=== PATIENT | male | born 1930 | race Caucasian/White ===

== ENCOUNTER 2018-09-22 19:33 | Emergency (ER) | payer MEDICARE ==
--- OUTSIDE RECORDS SUMMARY | 2018-09-22 19:49 | XMS REPORT | Continuity of Care Document ---
:1930 External Reference #:[id number] Author Name Vick Dailey M.D. Address [address] [place] [address] Care Team Providers Name Role Phone Vick Dailey M.D. Care Team Information [employer] Unavailable Payers Type Date Identification Numbers Payment Provider Subscriber Policy Number: [id number] Medicare - [employer] Name: Medicare [address] PayID: [id number] [facility] [place] [address] Advance Directives Description No Information Available Problems Date Description Provider Status Onset: 06/29/2014 Colitis Vick Dailey M.D. Active Onset: 06/29/2014 Acute renal failure syndrome Vick Dailey M.D. Active Onset: 06/29/2014 Atrial fibrillation Vick Dailey M.D. Active Onset: 06/29/2014 Clostridium difficile colitis Vick Dailey M.D. 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 Active Onset: 01/06/2015 Hypothyroidism Vick Dailey M.D. Active Onset: 01/06/2015 Congestive heart failure Vick Dailey M.D. Active Onset: 01/06/2015 Atrial fibrillation Vick Dailey M.D. 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 Active Onset: 03/06/2016 Chronic atrial fibrillation Vick Dailey M.D. Active Onset: 03/06/2016 Unspecified systolic (congestive) Vick Dailey M.D. Active heart failure Onset: 03/22/2016 Gastroesophageal reflux disease Vick Dailey M.D. Active Family History Date Family Member(s) Problem(s) Comments Father Heart Disease Father Heart Attack Mother Sciatica First Brother Leukemia Blood Cancer Second Brother Polio First Sister Cervical Cancer Social History Type Date Description Comments Sex Unknown Marital Status Legal Status: Legally Lives With Alone ETOH Use Denies alcohol use Tobacco Use Start: Unknown End: Patient is a former smoker Unknown Recreational Drug Use Denies Drug Use Smoking Status Reviewed: 09/09/18 Patient is a former smoker Allergies, Adverse Reactions, Alerts Description No Known Drug Allergies Medications Medication Date Status Form Strength Qnty SIG Indications Ordering Provider Proair HFA 03/07/ Active Aerosol 108(90Base 8.500g 2 puffs Vick 2016 ) mcg/Act m every 4 [facility] hours as os, M.D. needed Levothyroxine 09/11/ Active Tablets 75mcg 90tabs 1 by E03.9 Vick Sodium 2016 mouth [facility] every day os, M.DClint Metoprolol 07/26/ Active Tablets ER 50mg 30tabs 1 by I48.2 Vick Succinate ER 2014 24HR mouth [facility] every day os, M.DClint Lasix 02/21/ Active Tablets 40mg 90tabs 1 by I50.20 Vick 2014 mouth [facility] every day os, M.DClint Cardizem CD 01/21/ Active Caps ER 120mg 30caps 1 daily Vick 2014 24HR [facility] os, M.D. Potassium 01/21/ Active Tablets ER 20Meq 90tabs 1 by Vick Chloride ER 2015 mouth [facility] every day os, M.DClint Vitamin D3 09/22/ Active Capsules 5000Unit 90caps 1 by Vick [facility] Strength 2013 mouth [facility] every day os, M.D. Magnesium Oxide 09/22/ Active Tablets 400mg 30tabs take one Vcik 2013 daily [facility] os, M.D. Lisinopril 09/22/ Active Tablets 2.5mg 30tabs 1 by Vick 2013 mouth [facility] every day os, M.D. Calcium 500+D 06/29/ Active Tablets 500-400mg- 90tabs 1 by Vick Lugo Unit mouth [facility] three os, M.D. times a day Xarelto / Active Tablets 15mg 30tabs 1 by I48.2 Unknown 0000 mouth in the evening Cartia XT / Active Caps ER 120mg 1 by Unknown 0000 24HR mouth every day Digoxin 0000/ Active Tablets 125mcg 1 by Davidenko 0000 mouth , Timmy, every day M.D Levothyroxine 06/18/ Hx Tablets 50mcg 30tabs 1 by E03.9 Vick Sodium 2015 - mouth [facility] 09/11/ every day os, M.D. 2015 (stop the 100 mcg dose) Levothyroxine 04/18/ Hx Tablets 100mcg 30tabs 1 by E03.9 Vick Sodium 2015 - mouth [facility] 06/18/ every day os, M.D. 2016 Shingles 03/06/ Hx ok to Z00.01 Vick 2015 - give at [facility] 09/05/ the os, M.D. 2017 pharmacy Levothyroxine 07/26/ Hx Tablets 125mcg 30tabs 1 by E03.9 Vick Sodium 2014 - mouth [facility] 04/18/ every day os, M.D. 2015 Toprol XL 02/21/ Hx Tablets ER 50mg 1 daily Vick 2014 - 24HR [facility] 07/26/ os, M.D. 2014 Synthroid 02/21/ Hx Tablets 125mcg 30tabs 1 by 244.9 Vick 2014 - mouth [facility] 07/26/ every day os, M.D. 2014 Synthroid 01/06/ Hx Tablets 112mcg 30tabs 1 by 244.9 Vick 2014 - mouth [facility] 02/21/ every day os, M.D. 2014 ( stop the 100 mcg dose ) Lasix 01/06/ Hx Tablets 20mg 60tabs 1/2 by 428.0 Vcik 2014 - mouth [facility] 02/21/ twice a os, M.D. 2014 day Lasix 09/22/ Hx Tablets 40mg 60tabs 1 by 428.0 Vick 2013 - mouth [facility] 01/06/ twice a os, M.D. 2014 day Metoprolol 09/22/ Hx Tablets 50mg 1 by 428.0 Vick Tartrate 2013 - mouth [facility] 01/06/ every 6 os, M.D. 2015 hours Spironolactone 09/22/ Hx Tablets 25mg 45tabs 1/2 by Vick 2013 - mouth [facility] 01/06/ every day os, M.D. 2015 Lasix 10/17/ Hx Tablets 20mg 30tabs 1 by Vick Lugo - mouth [facility] 09/22/ daily ( os, M.DClint 2013 Sorry I Meant To Send 1 Daily Not bid) K-Tab 09/03/ Hx Tablets ER 20Meq 30tabs One Daily Vick 2013 - [facility] 01/06/ os, M.DClint 2014 Levaquin 08/24/ Hx Tablets 500mg 10tabs one daily Vick 2013 - [facility] 09/22/ os, M.DClint 2013 Synthroid 08/24/ Hx Tablets 100mcg 30tabs 1 by Seema.9 Vick 2013 - mouth [facility] 01/06/ every day os, M.DClint 2014 ( stop the 75 mcg dose ) Synthroid 08/13/ Hx Tablets 75mcg 30tabs 1 by Vick 2013 - mouth [facility] 08/24/ every day os, M.DClint 2013 (stop the 25 mcg dose ) Aspirin Ec 06/29/ Hx Tablets DR 325mg 30tabs 1 by Vick 2013 - mouth [facility] 08/27/ every day os, M.DClint 2013 Cardizem CD 06/29/ Hx Caps ER 180mg Vick 2013 - [facility] os, M.DClint 2013 Protonix 06/29/ Hx Tablets DR 40mg 90tabs 1 by Vick 2013 - mouth [facility] 07/26/ every day os, M.DClint 2014 Flomax 06/29/ Hx Capsules 0.4mg 90caps 1 by Vick 2013 - mouth [facility] 01/06/ every day os, M.DClint 2015 Synthroid 06/29/ Hx Tablets 25mcg 30tabs 1 by Vick 2013 - mouth [facility] 08/13/ every day os, M.DClint 2014 Tylenol 06/29/ Hx Tablets 325mg 120tab 2 tabs Vick 2013 - [facility], M.DClint 2015 needed Flagyl 06/29/ Hx Tablets 500mg 4tabs 1 t po q Vick 2013 - 8h stop [facility] 06/29/ /. os, M.DClint 2014 Zofran 06/29/ Hx Tablets 4mg 12tabs 1 every Vick 2013 - 12 hours [facility] 06/29/ as needed os, M.DClint 2014 Metoprolol 00/ Hx Tablets 25mg 60tabs 1 by Vick Tartrate 0000 - mouth [facility] 09/22/ twice a os, M.D. 2013 day Simvastatin / Hx Tablets 20mg 30tabs 1 by Unknown 0000 - mouth 08/27/ day 2013 at hs Aspir-81 / Hx Tablets DR 81mg 1 by Unknown 0000 - mouth 01/21/ every day 2014 Immunizations CPT Code Status Date Vaccine Lot # [id number] Given 09/11/2016 Prevnar 13 Prevnar 13 [id number] Given 09/11/2016 Flu High Dose Vaccine HPV [id number] 83744 Given 03/06/2016 Tdap Vaccine over 7 yrs old Tdap [id number] Given 03/06/2016 Prevnar 13 Prevnar 13p [id number] 09669 Given 07/26/2015 Flu High Dose Vaccine Hi/dose/flu [id number] Vital Signs Date Vital Result Comment 09/09/2018 9:16am Weight 152.00 lb BP Systolic 122 mmHg BP Diastolic 72 mmHg 03/10/2018 10:16am Weight 157.00 lb BP Systolic 98 mmHg BP Diastolic 64 mmHg Height 6.4 inches Heart Rate 63 /min O2 % BldC Oximetry 96 % room air Respiratory Rate 18 /min BMI (Body Mass Index) 2694.6 kg/m2 01/01/2018 10:51am Weight 159.00 lb BP Systolic 124 mmHg BP Diastolic 82 mmHg Body Temperature 97.6 F 03/07/2017 10:32am Weight 165.00 lb BP Systolic 120 mmHg BP Diastolic 80 mmHg Height 65.25 inches 5'5.25" Heart Rate 72 /min Body Temperature 96.6 F Respiratory Rate 16 /min BMI (Body Mass Index) 27.2 kg/m2 12/12/2016 8:38am Weight 168.50 lb BP Systolic 96 mmHg BP Diastolic 68 mmHg 09/11/2016 10:11am Weight 168.50 lb BP Systolic 122 mmHg BP Diastolic 60 mmHg 06/18/2016 10:29am Weight 163.00 lb BP Systolic 118 mmHg BP Diastolic 84 mmHg 03/06/2016 10:17am Weight 163.00 lb BP Systolic 118 mmHg BP Diastolic 80 mmHg Height 67.50 inches 5'7.50" Heart Rate 76 /min Body Temperature 97.2 F O2 % BldC Oximetry 99 % 2L (R) 3L(E) Respiratory Rate 16 /min BMI (Body Mass Index) 25.1 kg/m2 12/05/2015 11:36am Weight 162.00 lb BP Systolic 120 mmHg BP Diastolic 68 mmHg Heart Rate 68 /min O2 % BldC Oximetry 98 % 02 3L 11/04/2015 10:59am O2 % BldC Oximetry 88 % 07/26/2015 9:20am Weight 160.00 lb BP Systolic 110 mmHg BP Diastolic 78 mmHg Heart Rate 64 /min O2 % BldC Oximetry 95 % Ra 04/25/2015 8:25am Weight 161.00 lb BP Systolic 118 mmHg BP Diastolic 62 mmHg 01/21/2015 8:37am Weight 154.50 lb BP Systolic 112 mmHg BP Diastolic 68 mmHg 01/06/2015 10:02am Weight 144.00 lb BP Systolic 110 mmHg BP Diastolic 60 mmHg 09/22/2014 8:40am Weight 135.50 lb BP Systolic 100 mmHg BP Diastolic 70 mmHg O2 % BldC Oximetry 97 % Room Air 08/24/2014 9:48am Height 68 inches 5'8" 08/24/2014 8:49am Weight 188.00 lb BP Systolic 126 mmHg BP Diastolic 80 mmHg O2 % BldC Oximetry 93 % Ra 06/29/2014 9:43am Weight 151.00 lb BP Systolic 110 mmHg BP Diastolic 74 mmHg Body Temperature 76.0 F Results Test Date Facility Test Result H/L Range Note Urine Culture 01/01/2018 [facility] Urine Culture URETHRAL CHRISTIAN 6 [phone] Quantity > 100,000 CFU/mL 2 Culture If 01/01/2018 [facility] Culture If CULTURE TO 3 Indicated Comment [phone] Indicated Comment FOLLO <SEE NOTE> Source: URINE, CLEAN CAT <SEE NOTE> 4 Urinalysis With 01/01/2018 [facility] Urine Color YELLOW Yellow Microscopic [phone] Urine Clarity CLEAR Clear Urine Glucose - Dipstick NEGATIVE mg/dL Negative Urine Bilirubin - Dipstick NEGATIVE Negative Urine Ketone NEGATIVE mg/dL Negative Urine Specific [place] 1.010 1.010-1.030 Urine Blood TRACE Negative Urine PH 7.0 6.5-7.5 Urine Protein - Dipstick NEGATIVE mg/dL Negative Urine Urobilinogen - Dipstick 0.2 E.U./dL 0.2-1.0 Urine Nitrite - Dipstick POSITIVE Negative Urine Leuk Esterase MODERATE Negative Urine RBC 2-5 rbc/hpf 0-2 Urine WBC 10-20 wbc/hpf High 0-7 Urine Epithelial Cells VERY FEW /lpf None Seen Urine Bacteria MODERATE None Seen Urine Hyaline Cast 0-2 #/lpf None Seen Source: URINE, CLEAN CAT <SEE NOTE> 5 Protime 01/01/2018 [facility] Protime 18.7 seconds High 12.0-14.4 [phone] Inr 1.6 High 0.9-1.1 6 Anticoagulant Therapy? Unknown TSH Reflex FT4 01/01/2018 [facility] Thyroid Stim 2.77 uIU/mL 0.30 -4.20 And/Or FT3 [phone] Hormone Reflex add FT4? Y LDL Cholesterol Profile 01/01/2018 [facility] Cholesterol 166 mg/dL <200 7 [phone] Triglycerides 115 mg/dL <150 8 HDL Cholesterol 44 mg/dL >40 9 LDL-Cholesterol 99 mg/dL < 100 10 Reflex add FT4? Y Glycohemoglobin A1c 01/01/2018 [facility] Glycohemoglobin 6.3 % 4.2-6.3 11 [phone] (A1c) eAG 134 mg/dL Microalbumin,Random 01/01/2018 [facility] Microalbumin,Urine 48.5 < 20.0 Urine [phone] mg/L Comprehensive 01/01/2018 [facility] Glucose 123 High 74-106 Metabolic Panel [phone] mg/dL BUN 30 mg/dL High 7-18 Creatinine 1.7 mg/dL High 0.6-1.3 Glom Filtration Rate, Estimate 41 mL/min >60 If 50 mL/min >60 12 BUN/Creat 17.6 ratio Sodium 141 mmol/L 136-145 Potassium 3.9 mmol/L 3.5-5.1 Chloride 103 mmol/L 98-107 Carbon Dioxide 32 mmol/L 21-32 Anion Gap 6 mEq/L Low 8-16 Calcium 9.4 mg/dL 8.5-10.1 Total Protein 7.3 g/dL 6.4-8.2 Albumin 3.9 g/dL 3.4-5.0 Globulin 3.4 g/dL 1.9-4.3 Alb/Glob 1.1 ratio Bilirubin,Total 0.9 mg/dL 0.2-1.0 Sgot/Ast 18 U/L 15-37 SGPT/Alt 27 U/L 12-78 Alkaline Phosphatase 67 U/L 45-117 Reflex add FT4? Y CBC 01/01/2018 [facility] White Blood Count 8.8 K/uL 3.4-10.5 [phone] Red Blood Count 5.09 M/uL 4.20-5.80 Hemoglobin 15.5 gm/dL 12.8-17.0 Hematocrit 46.4 % 38.0-48.0 Mean Cell Volume 91.2 fl 80.0-96.0 Mean Corpuscular HGB 30.5 pg 27.0-33.0 Mean Corpuscular HGB Conc 33.4 g/dL 31.7-36.0 Platelet Count 294 K/uL 155-360 Red Cell Distri Width %CV 14.8 % 11.6-15.8 Mean Platelet Volume 10.8 fL High 6.6-10.6 Anticoagulant Therapy? Unknown Comprehensive Metabolic 02/28/2017 [facility] Glucose 126 mg/dL High 74-106 13 Panel [phone] BUN 31 mg/dL High 7-18 Creatinine 1.6 mg/dL High 0.6-1.3 Glom Filtration Rate, Estimate 44 mL/min >60 If 53 mL/min >60 14 BUN/Creat 19.3 ratio Sodium 143 mmol/L 136-145 Potassium 3.8 mmol/L 3.5-5.1 Chloride 104 mmol/L 98-107 Carbon Dioxide 34 mmol/L High 21-32 Anion Gap 5 mEq/L Low 8-16 Calcium 9.0 mg/dL 8.5-10.1 Total Protein 7.0 g/dL 6.4-8.2 Albumin 3.8 g/dL 3.4-5.0 Globulin 3.2 g/dL 1.9-4.3 Alb/Glob 1.2 ratio Bilirubin,Total 0.8 mg/dL 0.2-1.0 Sgot/Ast 13 U/L Low 15-37 15 SGPT/Alt 33 U/L 12-78 Alkaline Phosphatase 74 U/L 45-117 Reflex add FT3? Y Reflex add FT4? Y Microalbumin,Random 02/28/2017 [facility] Microalbumin,Urine 184.0 < Urine [phone] mg/L 20.0 TSH Reflex FT4 And/Or 02/28/2017 [facility] Thyroid Stim Hormone 0.15 Low 0.30- FT3 [phone] uIU/mL 4.20 Reflex add FT3? Y Reflex add FT4? Y CBS W/Automated Diff 02/28/2017 [facility] White Blood 9.6 K/uL 3.4-10.5 [phone] Count Red Blood Count 4.97 M/uL 4.20-5.80 Hemoglobin 15.1 gm/dL 12.8-17.0 Hematocrit 45.5 % 38.0-48.0 Mean Cell Volume 91.5 fl 80.0-96.0 Mean Corpuscular HGB 30.4 pg 27.0-33.0 Mean Corpuscular HGB Conc 33.2 g/dL 31.7-36.0 Platelet Count 252 K/uL 150-400 Red Cell Distri Width SD 47.4 fl 36-51 Red Cell Distri Width %CV 14.4 % 11.6-15.8 Mean Platelet Volume 11.3 fL High 6.6-10.6 Neut% 61.1 % 33.0-73.0 Lymph % 22.1 % 20.0-42.0 Luna % 11.9 % High 0.0-10.0 Eo% 4.4 % 0.0-6.6 Bas% 0.5 % 0.0-1.1 Neut# 5.87 K/uL 1.8-7.0 Lymph # 2.12 K/uL 1.0-4.0 Luna # 1.14 K/uL High 0.0-0.8 Eos # 0.42 K/uL 0.0-0.5 Baso # 0.05 K/uL 0.0-0.1 Free T3 02/28/2017 [facility] Free T3 2.81 pg/mL 2.18-3.98 [phone] Reflex add FT3? Y Reflex add FT4? Y Free T4 02/28/2017 [facility] Free T4 1.42 ng/dL 0.76-1.46 [phone] Reflex add FT3? Y Reflex add FT4? Y Laboratory 11/29/2016 [facility] Testosterone,Serum [phone] 16, 17 test finding [phone] ng/dL Prostate 11/29/2016 [facility] PSA (Natalia Loci) 5.54 < 4.0 18 Specific [phone] ng/mL Antigen Reflex add FT3? N Reflex add FT4? Y CBC 11/29/2016 [facility] White Blood Count 7.9 K/uL 3.4-10.5 [phone] Red Blood Count 4.88 M/uL 4.20-5.80 Hemoglobin 15.1 gm/dL 12.8-17.0 Hematocrit 45.1 % 38.0-48.0 Mean Cell Volume 92.4 fl 80.0-96.0 Mean Corpuscular HGB 30.9 pg 27.0-33.0 Mean Corpuscular HGB Conc 33.5 g/dL 31.7-36.0 Platelet Count 249 K/uL 150-400 Red Cell Distri Width %CV 14.0 % 11.6-15.8 Mean Platelet Volume 11.2 fL High 6.6-10.6 Comprehensive Metabolic 11/29/2016 [facility] Glucose 112 mg/dL High 74-106 Panel [phone] BUN 32 mg/dL High 7-18 Creatinine 1.6 mg/dL High 0.6-1.3 Glom Filtration Rate, Estimate 44 mL/min >60 If 53 mL/min >60 19 BUN/Creat 20.0 ratio Sodium 142 mmol/L 136-145 Potassium 3.8 mmol/L 3.5-5.1 Chloride 102 mmol/L 98-107 Carbon Dioxide 35 mmol/L High 21-32 Anion Gap 5 mEq/L Low 8-16 Calcium 8.9 mg/dL 8.5-10.1 Total Protein 7.0 g/dL 6.4-8.2 Albumin 3.8 g/dL 3.4-5.0 Globulin 3.2 g/dL 1.9-4.3 Alb/Glob 1.2 ratio Bilirubin,Total 0.9 mg/dL 0.2-1.0 Sgot/Ast 11 U/L Low 15-37 20 SGPT/Alt 29 U/L 12-78 Alkaline Phosphatase 74 U/L 45-117 Reflex add FT3? N Reflex add FT4? Y TSH Reflex FT4 11/29/2016 [facility] Thyroid Stim 0.52 uIU/mL 0.30 -4.20 And/Or FT3 [phone] Hormone Reflex add FT3? N Reflex add FT4? Y TSH Reflex 09/07/2016 [facility] Thyroid Stim 6.78 uIU/mL High 0.30 -4.20 21 FT4 And/Or [phone] Hormone FT3 Reflex add FT3? Y Reflex add FT4? Y Free T3 09/07/2016 [facility] Free T3 2.65 pg/mL 2.18-3.98 [phone] Reflex add FT3? Y Reflex add FT4? Y Free T4 09/07/2016 [facility] Free T4 1.31 ng/dL 0.76-1.46 [phone] Reflex add FT3? Y Reflex add FT4? Y Laboratory test 06/13/2016 [facility] TSH Reflex 0.01 Low 0.30- 4.20 22 finding [phone] FT4 and/or uIU/mL FT3 Laboratory test 03/27/2016 [facility] TSH Reflex < 0.01 Low 0.30- 4.20 23 finding [phone] FT4 and/or uIU/mL FT3 Comprehensive 03/27/2016 [facility] Glucose 105 mg/dL 74-106 Metabolic Panel [phone] BUN 27 mg/dL High 7-18 Creatinine 1.4 mg/dL High 0.6-1.3 Glom Filtration Rate, Estimate 51 mL/min >60 If >60 mL/min >60 24 BUN/Creat 19.2 ratio Sodium 138 mmol/L 136-145 Potassium 4.3 mmol/L 3.5-5.1 Chloride 100 mmol/L 98-107 Carbon Dioxide 33 mmol/L High 21-32 Anion Gap 5 mEq/L Low 8-16 Calcium 8.9 mg/dL 8.5-10.1 Total Protein 7.3 g/dL 6.4-8.2 Albumin 3.8 g/dL 3.4-5.0 Globulin 3.5 g/dL 1.9-4.3 Alb/Glob 1.1 ratio Bilirubin,Total 0.5 mg/dL 0.2-1.0 Sgot/Ast 15 U/L 15-37 SGPT/Alt 41 U/L 12-78 Alkaline Phosphatase 91 U/L 45-117 CBC 03/27/2016 [facility] White Blood Count 8.3 K/uL 3.4-10.5 [phone] Red Blood Count 4.75 M/uL 4.20-5.80 Hemoglobin 13.8 gm/dL 12.8-17.0 Hematocrit 43.1 % 38.0-48.0 Mean Cell Volume 90.7 fl 80.0-96.0 Mean Corpuscular HGB 29.1 pg 27.0-33.0 Mean Corpuscular HGB Conc 32.0 g/dL 31.7-36.0 Platelet Count 276 K/uL 150-400 Red Cell Distri Width %CV 14.3 % 11.6-15.8 Mean Platelet Volume 11.4 fL High 6.6-10.6 LDL Cholesterol Profile 03/27/2016 [facility] Cholesterol 154 mg/dL <200 25 [phone] Triglycerides 121 mg/dL <150 26 HDL Cholesterol 35 mg/dL Low >40 27 LDL-Cholesterol 95 mg/dL < 100 28 CBC 10/27/2015 [facility] White Blood Count 12.2 K/uL High 3.4- 10.5 [phone] Red Blood Count 4.17 M/uL Low 4.20-5.80 Hemoglobin 12.7 gm/dL Low 12.8-17.0 Hematocrit 37.7 % Low 38.0-48.0 Mean Cell Volume 90.4 fl 80.0-96.0 Mean Corpuscular HGB 30.5 pg 27.0-33.0 Mean Corpuscular HGB Conc 33.7 g/dL 31.7-36.0 Platelet Count 282 K/uL 150-400 Red Cell Distri Width %CV 14.6 % 11.6-15.8 Mean Platelet Volume 11.3 fL High 6.6-10.6 Laboratory test 10/27/2015 [facility] Magnesium 2.4 mg/dL 1.8-2.4 finding [phone] Basic Metabolic Panel 10/27/2015 [facility] Glucose 196 mg/dL High 74-106 [phone] BUN 47 mg/dL High 7-18 Creatinine 1.6 mg/dL High 0.6-1.3 Glom Filtration Rate, Estimate 44 mL/min >60 If 53 mL/min >60 29 BUN/Creat 29.3 ratio Sodium 137 mmol/L 136-145 Potassium 4.4 mmol/L 3.5-5.1 Chloride 100 mmol/L 98-107 Carbon Dioxide 28 mmol/L 21-32 Anion Gap 9 mEq/L 8-16 Calcium 9.1 mg/dL 8.5-10.1 CBC 10/26/2015 [facility] White Blood Count 6.6 K/uL 3.4-10.5 [phone] Red Blood Count 4.24 M/uL 4.20-5.80 Hemoglobin 12.7 gm/dL Low 12.8-17.0 Hematocrit 37.9 % Low 38.0-48.0 Mean Cell Volume 89.4 fl 80.0-96.0 Mean Corpuscular HGB 30.0 pg 27.0-33.0 Mean Corpuscular HGB Conc 33.5 g/dL 31.7-36.0 Platelet Count 235 K/uL 150-400 Red Cell Distri Width %CV 14.5 % 11.6-15.8 Mean Platelet Volume 11.6 fL High 6.6-10.6 Laboratory test 10/26/2015 [facility] C-Reactive 129.0 mg/L High < 3.0 finding [phone] Protein,Quant Basic Metabolic 10/26/2015 [facility] Glucose 190 mg/dL High 74- 106 Panel [phone] BUN 42 mg/dL High 7-18 Creatinine 1.7 mg/dL High 0.6-1.3 Glom Filtration Rate, Estimate 41 mL/min >60 If 50 mL/min >60 30 BUN/Creat 24.7 ratio Sodium 138 mmol/L 136-145 Potassium 4.3 mmol/L 3.5-5.1 Chloride 100 mmol/L 98-107 Carbon Dioxide 29 mmol/L 21-32 Anion Gap 9 mEq/L 8-16 Calcium 9.5 mg/dL 8.5-10.1 Comprehensive Metabolic 10/25/2015 [facility] Glucose 114 mg/dL High 74-106 Panel [phone] BUN 39 mg/dL High 7-18 Creatinine 1.5 mg/dL High 0.6-1.3 Glom Filtration Rate, Estimate 48 mL/min >60 If 58 mL/min >60 31 BUN/Creat 26.0 ratio Sodium 139 mmol/L 136-145 Potassium 3.6 mmol/L 3.5-5.1 Chloride 101 mmol/L 98-107 Carbon Dioxide 32 mmol/L 21-32 Anion Gap 6 mEq/L Low 8-16 Calcium 9.0 mg/dL 8.5-10.1 Total Protein 6.0 g/dL Low 6.4-8.2 Albumin 2.8 g/dL Low 3.4-5.0 Globulin 3.2 g/dL 1.9-4.3 Alb/Glob 0.9 ratio Bilirubin,Total 0.8 mg/dL 0.2-1.0 Sgot/Ast 12 U/L Low 15-37 32 SGPT/Alt 24 U/L 12-78 Alkaline Phosphatase 56 U/L 45-117 CBC 10/25/2015 [facility] White Blood Count 7.0 K/uL 3.4-10.5 [phone] Red Blood Count 4.02 M/uL Low 4.20-5.80 Hemoglobin 12.1 gm/dL Low 12.8-17.0 Hematocrit 36.0 % Low 38.0-48.0 Mean Cell Volume 89.6 fl 80.0-96.0 Mean Corpuscular HGB 30.1 pg 27.0-33.0 Mean Corpuscular HGB Conc 33.6 g/dL 31.7-36.0 Platelet Count 208 K/uL 150-400 Red Cell Distri Width %CV 14.5 % 11.6-15.8 Mean Platelet Volume 11.8 fL High 6.6-10.6 Comprehensive Metabolic 10/24/2015 [facility] Glucose 152 mg/dL High 74-106 Panel [phone] BUN 37 mg/dL High 7-18 Creatinine 1.6 mg/dL High 0.6-1.3 Glom Filtration Rate, Estimate 44 mL/min >60 If 53 mL/min >60 33 BUN/Creat 23.1 ratio Sodium 139 mmol/L 136-145 Potassium 4.0 mmol/L 3.5-5.1 Chloride 100 mmol/L 98-107 Carbon Dioxide 28 mmol/L 21-32 Anion Gap 11 mEq/L 8-16 Calcium 9.2 mg/dL 8.5-10.1 Total Protein 7.1 g/dL 6.4-8.2 Albumin 3.5 g/dL 3.4-5.0 Globulin 3.6 g/dL 1.9-4.3 Alb/Glob 1.0 ratio Bilirubin,Total 1.3 mg/dL High 0.2-1.0 Sgot/Ast 11 U/L Low 15-37 34 SGPT/Alt 29 U/L 12-78 Alkaline Phosphatase 70 U/L 45-117 Laboratory test 10/24/2015 [facility] NT-proBNP 5052.0 pg/mL High < 450 finding [phone] Troponin-I < 0.015 ng/mL 35 CBC W/Automated 10/24/2015 [facility] White Blood 11.1 K/uL High 3.4-10.5 Diff [phone] Count Red Blood Count 4.44 M/uL 4.20-5.80 Hemoglobin 13.8 gm/dL 12.8-17.0 Hematocrit 40.5 % 38.0-48.0 Mean Cell Volume 91.2 fl 80.0-96.0 Mean Corpuscular HGB 31.1 pg 27.0-33.0 Mean Corpuscular HGB Conc 34.1 g/dL 31.7-36.0 Platelet Count 246 K/uL 150-400 Red Cell Distri Width SD 47.6 fl 36-51 Red Cell Distri Width %CV 14.7 % 11.6-15.8 Mean Platelet Volume 11.4 fL High 6.6-10.6 Neut% 79.3 % High 33.0-73.0 Lymph % 6.2 % Low 17.0-56.0 Luna % 14.1 % High 0.0-10.0 Eo% 0.3 % 0.0-5.0 Bas% 0.1 % 0.1-1.0 Neut# 8.78 K/uL High 1.8-7.0 Lymph # 0.69 K/uL Low 1.8-7.0 Luna # 1.56 K/uL High 0.0-0.8 Eos # 0.03 K/uL 0.0-0.5 Baso # 0.01 K/uL Low 0.1-0.2 Blood Culture 10/24/2015 [facility] Blood Culture Aerobic See Note 36 [phone] Blood Culture Anaerobic See Note 37 Laboratory test 10/24/2015 [facility] Lactic Acid 2.2 mmol/L High 0.4-2.0 finding [phone] Blood Culture 10/24/2015 [facility] Blood Culture See Note 38 [phone] Aerobic Blood Culture Anaerobic See Note 39 Venous Blood Gas 10/24/2015 [facility] Venous Blood Gas pH 7.44 7.25-7.55 [phone] Venous Blood Gas Pco2 46 mmHg 45-50 Venous Blood Gas Po2 172 mmHg High 40-60 Venous Blood Gas Hco3 30.5 mEq/L Venous Blood Gas Base XS 5.5 mEq/L Venous Blood Gas OS Sat. 99.4 % High 60-80 Laboratory test 10/24/2015 [facility] Legionella Culture See Note 40 finding [phone] Respiratory Culture 10/24/2015 [facility] Gram Stain See Note 41 W/Gram St [phone] Respiratory Culture See Note 42 Laboratory test 12/13/2014 [facility] Free T3 1.89 pg/mL Low 2.18- 3.98 finding [phone] Free T4 1.64 ng/dL High 0.76-1.46 CBC W/Automated Diff 12/13/2014 [facility] White Blood 7.7 K/uL 3.4-10.5 [phone] Count Red Blood Count 4.84 M/uL 4.20-5.80 Hemoglobin 14.4 gm/dL 12.8-17.0 Hematocrit 43.4 % 38.0-48.0 Mean Cell Volume 89.7 fl 80.0-96.0 Mean Corpuscular HGB 29.8 pg 27.0-33.0 Mean Corpuscular HGB Conc 33.2 g/dL 31.7-36.0 Platelet Count 286 K/uL 150-400 Red Cell Distri Width SD 50.3 fl 36-51 Red Cell Distri Width %CV 15.6 % 11.6-15.8 Mean Platelet Volume 11.0 fL High 6.6-10.6 Neut% 71.2 % 33.0-73.0 Lymph % 15.5 % Low 17.0-56.0 Luna % 10.0 % 0.0-10.0 Eo% 2.9 % 0.0-5.0 Bas% 0.4 % 0.1-1.0 Neut# 5.49 K/uL 1.8-7.0 Lymph # 1.19 K/uL Low 1.2-4.0 Luna # 0.77 K/uL High 0.0-0.6 Eos # 0.22 K/uL 0.0-0.5 Baso # 0.03 K/uL Low 0.1-0.2 Comprehensive Metabolic 12/13/2014 [facility] Glucose 174 mg/dL High 74-106 Panel [phone] BUN 60 mg/dL High 7-18 Creatinine 2.0 mg/dL High 0.6-1.3 Glom Filtration Rate, Estimate 34 mL/min >60 If 41 mL/min >60 43 BUN/Creat 30.0 ratio Sodium 140 mmol/L 136-145 Potassium 4.3 mmol/L 3.5-5.1 Chloride 102 mmol/L 98-107 Carbon Dioxide 34 mmol/L High 21-32 Anion Gap 8 mEq/L 8-16 Calcium 10.0 mg/dL 8.5-10.1 Total Protein 6.9 g/dL 6.4-8.2 Albumin 4.0 g/dL 3.4-5.0 Globulin 2.9 g/dL 1.9-4.3 Alb/Glob 1.4 ratio Bilirubin,Total 0.6 mg/dL 0.2-1.0 Sgot/Ast 17 U/L 15-37 SGPT/Alt 43 U/L 12-78 Alkaline Phosphatase 71 U/L 45-117 Laboratory test 12/13/2014 [facility] TSH Reflex 4.98 High 0.36- 3.74 44 finding [phone] FT4 and/or uIU/mL FT3 Laboratory test 10/07/2014 [facility] Vitamin 40.1 ng/mL 30.0- 100.0 45 finding [phone] D,25-Hydrox y Comprehensive 10/07/2014 [facility] Glucose 202 mg/dL High 74-106 Metabolic Panel [phone] BUN 41 mg/dL High 7-18 Creatinine 1.4 mg/dL High 0.6-1.3 Glom Filtration Rate, Estimate 52 mL/min >60 If >60 mL/min >60 46 BUN/Creat 29.2 ratio Sodium 140 mmol/L 136-145 Potassium 3.7 mmol/L 3.5-5.1 Chloride 101 mmol/L 98-107 Carbon Dioxide 36 mmol/L High 21-32 Anion Gap 7 mEq/L Low 8-16 Calcium 9.5 mg/dL 8.5-10.1 Total Protein 6.8 g/dL 6.4-8.2 Albumin 3.8 g/dL 3.4-5.0 Globulin 3.0 g/dL 1.9-4.3 Alb/Glob 1.3 ratio Bilirubin,Total 0.5 mg/dL 0.2-1.0 Sgot/Ast 17 U/L 15-37 SGPT/Alt 34 U/L 12-78 Alkaline Phosphatase 77 U/L 45-117 Laboratory test 10/07/2014 [facility] Thyroid Stim 4.51 uIU/mL High 0.36-3.74 finding [phone] Hormone Basic Metabolic 09/10/2014 [facility] Glucose 86 mg/dL 74-106 Panel [phone] BUN 40 mg/dL High 7-18 Creatinine 1.3 mg/dL 0.6-1.3 Glom Filtration Rate, Estimate 56 mL/min >60 If >60 mL/min >60 47 BUN/Creat 30.7 ratio Sodium 139 mmol/L 136-145 Potassium 4.1 mmol/L 3.5-5.1 Chloride 99 mmol/L 98-107 Carbon Dioxide 37 mmol/L High 21-32 Anion Gap 7 mEq/L Low 8-16 Calcium 8.7 mg/dL 8.5-10.1 CBC 09/09/2014 [facility] White Blood Count 6.1 K/uL 3.4-10.5 [phone] Red Blood Count 4.22 M/uL 4.20-5.80 Hemoglobin 13.1 gm/dL 12.8-17.0 Hematocrit 38.8 % 38.0-48.0 Mean Cell Volume 91.9 fl 80.0-96.0 Mean Corpuscular HGB 31.0 pg 27.0-33.0 Mean Corpuscular HGB Conc 33.8 g/dL 31.7-36.0 Platelet Count 285 K/uL 150-400 Red Cell Distri Width %CV 14.3 % 11.6-15.8 Mean Platelet Volume 11.1 fL High 6.6-10.6 Basic Metabolic Panel 09/09/2014 [facility] Glucose 89 mg/dL 74- 106 [phone] BUN 41 mg/dL High 7-18 Creatinine 1.5 mg/dL High 0.6-1.3 Glom Filtration Rate, Estimate 48 mL/min >60 If 58 mL/min >60 48 BUN/Creat 27.3 ratio Sodium 139 mmol/L 136-145 Potassium 4.0 mmol/L 3.5-5.1 Chloride 98 mmol/L 98-107 Carbon Dioxide 38 mmol/L High 21-32 Anion Gap 7 mEq/L Low 8-16 Calcium 8.9 mg/dL 8.5-10.1 Laboratory test finding 09/08/2014 [facility] Magnesium 1.7 mg/dL Low 1.8-2.4 [phone] Basic Metabolic Panel 09/08/2014 [facility] Glucose 88 mg/dL 74- 106 [phone] BUN 30 mg/dL High 7-18 Creatinine 1.3 mg/dL 0.6-1.3 Glom Filtration Rate, Estimate 56 mL/min >60 If >60 mL/min >60 49 BUN/Creat 23.0 ratio Sodium 138 mmol/L 136-145 Potassium 3.8 mmol/L 3.5-5.1 Chloride 94 mmol/L Low 98-107 Carbon Dioxide 40 mmol/L High 21-32 Anion Gap 8 mEq/L 8-16 Calcium 9.0 mg/dL 8.5-10.1 Laboratory test 09/07/2014 [facility] Troponin-I < 0.02 ng/mL 50 finding [phone] Laboratory test 09/07/2014 [facility] Magnesium 1.6 mg/dL Low 1.8- 2.4 finding [phone] Basic Metabolic 09/07/2014 [facility] Glucose 82 mg/dL 74-106 Panel [phone] BUN 23 mg/dL High 7-18 Creatinine 1.3 mg/dL 0.6-1.3 Glom Filtration Rate, Estimate 56 mL/min >60 If >60 mL/min >60 51 BUN/Creat 17.6 ratio Sodium 142 mmol/L 136-145 Potassium 3.7 mmol/L 3.5-5.1 Chloride 101 mmol/L 98-107 Carbon Dioxide 35 mmol/L High 21-32 Anion Gap 10 mEq/L 8-16 Calcium 8.4 mg/dL Low 8.5-10.1 CBC W/Automated Diff 09/06/2014 [facility] White Blood 7.1 K/uL 3.4-10.5 [phone] Count Red Blood Count 4.33 M/uL 4.20-5.80 Hemoglobin 13.3 gm/dL 12.8-17.0 Hematocrit 40.5 % 38.0-48.0 Mean Cell Volume 93.5 fl 80.0-96.0 Mean Corpuscular HGB 30.7 pg 27.0-33.0 Mean Corpuscular HGB Conc 32.8 g/dL 31.7-36.0 Platelet Count 269 K/uL 150-400 Red Cell Distri Width SD 50.8 fl 36-51 Red Cell Distri Width %CV 15.1 % 11.6-15.8 Mean Platelet Volume 11.0 fL High 6.6-10.6 Neut% 69.2 % 33.0-73.0 Lymph % 12.2 % Low 17.0-56.0 Luna % 14.0 % High 0.0-10.0 Eo% 3.9 % 0.0-5.0 Bas% 0.7 % 0.1-1.0 Neut# 4.93 K/uL 1.8-7.0 Lymph # 0.87 K/uL Low 1.2-4.0 Luna # 1.00 K/uL High 0.0-0.6 Eos # 0.28 K/uL 0.0-0.5 Baso # 0.05 K/uL Low 0.1-0.2 Laboratory test finding 09/06/2014 [facility] CK 51 U/L 39-308 [phone] NT-proBNP 9764.0 pg/mL High <450 Troponin-I < 0.02 ng/mL 52 Comprehensive Metabolic 09/06/2014 [facility] Glucose 131 mg/dL High 74-106 Panel [phone] BUN 20 mg/dL High 7-18 Creatinine 1.0 mg/dL 0.6-1.3 Glom Filtration Rate, Estimate >60 mL/min >60 If >60 mL/min >60 53 BUN/Creat 20.0 ratio Sodium 141 mmol/L 136-145 Potassium 4.3 mmol/L 3.5-5.1 Chloride 104 mmol/L 98-107 Carbon Dioxide 34 mmol/L High 21-32 Anion Gap 7 mEq/L Low 8-16 Calcium 8.9 mg/dL 8.5-10.1 Total Protein 6.7 g/dL 6.4-8.2 Albumin 3.6 g/dL 3.4-5.0 Globulin 3.1 g/dL 1.9-4.3 Alb/Glob 1.2 ratio Bilirubin,Total 0.3 mg/dL 0.2-1.0 Sgot/Ast 26 U/L 15-37 SGPT/Alt 29 U/L 12-78 Alkaline Phosphatase 110 U/L 45-117 Laboratory test 09/06/2014 [facility] Troponin-I < 0.02 54 finding [phone] ng/mL Laboratory test 08/24/2014 [facility] TSH Reflex FT4 11.00 High 0.36- 55 finding [phone] and/or FT3 uIU/mL 3.74 Comprehensive 08/24/2014 [facility] Glucose 91 mg/dL 74-10 Metabolic Panel [phone] BUN 21 mg/dL High 7-18 Creatinine 0.9 mg/dL 0.6-1.3 Glom Filtration Rate, Estimate >60 mL/min >60 If >60 mL/min >60 56 BUN/Creat 23.3 ratio Sodium 145 mmol/L 136-145 Potassium 3.4 mmol/L Low 3.5-5.1 Chloride 108 mmol/L High 98-107 Carbon Dioxide 33 mmol/L High 21-32 Anion Gap 7 mEq/L Low 8-16 Calcium 8.7 mg/dL 8.5-10.1 Total Protein 6.2 g/dL Low 6.4-8.2 Albumin 3.1 g/dL Low 3.4-5.0 Globulin 3.1 g/dL 1.9-4.3 Alb/Glob 1.0 ratio Bilirubin,Total 0.4 mg/dL 0.2-1.0 Sgot/Ast 9 U/L Low 15-37 SGPT/Alt 24 U/L 12-78 Alkaline Phosphatase 112 U/L 45-117 CBS W/Automated Diff 08/24/2014 [facility] White Blood 6.8 K/uL 3.4-10.5 [phone] Count Red Blood Count 4.38 M/uL 4.20-5.80 Hemoglobin 13.5 gm/dL 12.8-17.0 Hematocrit 40.8 % 38.0-48.0 Mean Cell Volume 93.2 fl 80.0-96.0 Mean Corpuscular HGB 30.8 pg 27.0-33.0 Mean Corpuscular HGB Conc 33.1 g/dL 31.7-36.0 Platelet Count 258 K/uL 150-400 Red Cell Distri Width SD 49.0 fl 36-51 Red Cell Distri Width %CV 14.8 % 11.6-15.8 Mean Platelet Volume 11.5 fL High 6.6-10.6 Neut% 69.8 % 33.0-73.0 Lymph % 10.4 % Low 17.0-56.0 Luna % 14.8 % High 0.0-10.0 Eo% 4.6 % 0.0-5.0 Bas% 0.4 % 0.1-1.0 Neut# 4.75 K/uL 1.8-7.0 Lymph # 0.71 K/uL Low 1.2-4.0 Luna # 1.01 K/uL High 0.0-0.6 Eos # 0.31 K/uL 0.0-0.5 Baso # 0.03 K/uL Low 0.1-0.2 Laboratory test finding 08/24/2014 [facility] Uric Acid 4.7 mg/dL 3.5-7.2 [phone] Free T3 3.10 pg/mL 2.18-3.98 Free T4 1.29 ng/dL 0.76-1.46 Comprehensive Metabolic 07/21/2014 [facility] Glucose 109 mg/dL 76 -115 Panel [phone] BUN 18 mg/dL 5-23 Creatinine 1.1 mg/dL 0.5-1.4 Glom Filtration Rate, Estimate >60 mL/min >60 If >60 mL/min >60 57 BUN/Creat 16.3 ratio Sodium 141 mmol/L 136-145 Potassium 3.7 mmol/L 3.5-5.1 Chloride 107 mmol/L 98-107 Carbon Dioxide 27 mEq/L 18-29 Anion Gap 11 mEq/L 8-16 Calcium 8.5 mg/dL 8.5-10.1 Total Protein 5.6 g/dL Low 6.3-8.0 Albumin 2.7 g/dL Low 3.5-5.0 Globulin 2.9 g/dL 1.9-4.3 Alb/Glob 0.9 ratio Bilirubin,Total 0.5 mg/dL 0.2-1.2 Sgot/Ast 17 U/L 16-40 SGPT/Alt 26 U/L Low 30-65 Alkaline Phosphatase 92 U/L 50-136 Laboratory test 07/21/2014 [facility] Thyroid Stim 20.90 High 0.49- 4.67 finding [phone] Hormone uIU/mL CBC 07/21/2014 [facility] White Blood 6.6 K/uL 3.4-10.5 [phone] Count Red Blood Count 4.30 M/uL 4.20-5.80 Hemoglobin 13.0 gm/dL 12.8-17.0 Hematocrit 39.3 % 38.0-48.0 Mean Cell Volume 91.4 fl 80.0-96.0 Mean Corpuscular HGB 30.2 pg 27.0-33.0 Mean Corpuscular HGB Conc 33.1 g/dL 31.7-36.0 Platelet Count 374 K/uL 150-400 Red Cell Distri Width %CV 15.2 % 11.6-15.8 Mean Platelet Volume 10.1 fL 6.6-10.6 Basic Metabolic Panel 07/14/2014 [facility] Glucose 133 mg/dL High 76-115 [phone] BUN 24 mg/dL High 5-23 Creatinine 1.4 mg/dL 0.5-1.4 Glom Filtration Rate, Estimate 52 mL/min >60 If >60 mL/min >60 58 BUN/Creat 17.1 ratio Sodium 139 mmol/L 136-145 Potassium 3.6 mmol/L 3.5-5.1 Chloride 97 mmol/L Low 98-107 Carbon Dioxide 38 mEq/L High 18-29 Anion Gap 8 mEq/L 8-16 Calcium 8.1 mg/dL Low 8.5-10.1 Laboratory test finding 07/14/2014 [facility] Magnesium 1.8 mg/dL 1.7-2.3 [phone] C-Reactive Protein,Quant 76.8 mg/L High 0.0-4.9 Urinalysis With 07/14/2014 [facility] Urine Color YELLOW Yellow Microscopic [phone] Urine Clarity CLEAR Clear Urine Glucose - Dipstick NEGATIVE mg/dL Negative Urine Bilirubin - Dipstick NEGATIVE Negative Urine Ketone NEGATIVE mg/dL Negative Urine Specific [place] 1.010 1.010-1.030 Urine Blood LARGE High Negative Urine PH 7.0 6.5-7.5 Urine Protein - Dipstick NEGATIVE mg/dL Negative Urine Urobilinogen - Dipstick 0.2 E.U./dL 0.2-1.0 Urine Nitrite - Dipstick NEGATIVE Negative Urine Leuk Esterase NEGATIVE Negative Urine RBC 5-10 rbc/hpf 0-7 Urine WBC 0-2 wbc/hpf 0-7 Urine Epithelial Cells NONE SEEN NONESEEN/lpf Urine Bacteria VERY FEW NONESEEN Laboratory test 07/14/2014 [facility] Urine Screen See Note 59 finding [phone] Basic Metabolic Panel 07/13/2014 [facility] Glucose 101 mg/dL 76- 115 [phone] BUN 17 mg/dL 5-23 Creatinine 1.0 mg/dL 0.5-1.4 Glom Filtration Rate, Estimate >60 mL/min >60 If >60 mL/min >60 60 BUN/Creat 17.0 ratio Sodium 140 mmol/L 136-145 Potassium 3.6 mmol/L 3.5-5.1 Chloride 100 mmol/L 98-107 Carbon Dioxide 37 mEq/L High 18-29 Anion Gap 7 mEq/L Low 8-16 Calcium 8.0 mg/dL Low 8.5-10.1 CBC 07/13/2014 [facility] White Blood Count 8.0 K/uL 3.4-10.5 [phone] Red Blood Count 3.82 M/uL Low 4.20-5.80 Hemoglobin 11.8 gm/dL Low 12.8-17.0 Hematocrit 35.4 % Low 38.0-48.0 Mean Cell Volume 92.7 fl 80.0-96.0 Mean Corpuscular HGB 30.9 pg 27.0-33.0 Mean Corpuscular HGB Conc 33.3 g/dL 31.7-36.0 Platelet Count 241 K/uL 150-400 Red Cell Distri Width %CV 16.0 % High 11.6-15.8 Mean Platelet Volume 11.6 fL High 6.6-10.6 Laboratory test finding 07/13/2014 [facility] Magnesium 1.6 mg/dL Low 1.7-2.3 [phone] NT-proBNP 72392.0 pg/mL High <650.0 61 C-Reactive Protein,Quant 85.9 mg/L High 0.0-4.9 Laboratory test finding 07/11/2014 [facility] Magnesium 1.6 mg/dL Low 1.7-2.3 [phone] Basic Metabolic Panel 07/11/2014 [facility] Glucose 100 mg/dL 76- 115 [phone] BUN 19 mg/dL 5-23 Creatinine 0.9 mg/dL 0.5-1.4 Glom Filtration Rate, Estimate >60 mL/min >60 If >60 mL/min >60 62 BUN/Creat 21.1 ratio Sodium 139 mmol/L 136-145 Potassium 3.7 mmol/L 3.5-5.1 Chloride 101 mmol/L 98-107 Carbon Dioxide 33 mEq/L High 18-29 Anion Gap 9 mEq/L 8-16 Calcium 8.1 mg/dL Low 8.5-10.1 CBC 07/10/2014 [facility] White Blood Count 7.5 K/uL 3.4-10.5 [phone] Red Blood Count 4.23 M/uL 4.20-5.80 Hemoglobin 12.7 gm/dL Low 12.8-17.0 Hematocrit 39.3 % 38.0-48.0 Mean Cell Volume 92.9 fl 80.0-96.0 Mean Corpuscular HGB 30.0 pg 27.0-33.0 Mean Corpuscular HGB Conc 32.3 g/dL 31.7-36.0 Platelet Count 259 K/uL 150-400 Red Cell Distri Width %CV 16.5 % High 11.6-15.8 Mean Platelet Volume 10.5 fL 6.6-10.6 Laboratory test finding 07/10/2014 [facility] Magnesium 1.7 mg/dL 1.7-2.3 [phone] Basic Metabolic Panel 07/10/2014 [facility] Glucose 96 mg/dL 76- 115 [phone] BUN 21 mg/dL 5-23 Creatinine 1.2 mg/dL 0.5-1.4 Glom Filtration Rate, Estimate >60 mL/min >60 If >60 mL/min >60 63 BUN/Creat 17.5 ratio Sodium 142 mmol/L 136-145 Potassium 4.0 mmol/L 3.5-5.1 Chloride 104 mmol/L 98-107 Carbon Dioxide 33 mEq/L High 18-29 Anion Gap 9 mEq/L 8-16 Calcium 8.2 mg/dL Low 8.5-10.1 CBC 07/09/2014 [facility] White Blood Count 6.4 K/uL 3.4-10.5 [phone] Red Blood Count 4.17 M/uL Low 4.20-5.80 Hemoglobin 12.7 gm/dL Low 12.8-17.0 Hematocrit 38.6 % 38.0-48.0 Mean Cell Volume 92.6 fl 80.0-96.0 Mean Corpuscular HGB 30.5 pg 27.0-33.0 Mean Corpuscular HGB Conc 32.9 g/dL 31.7-36.0 Platelet Count 276 K/uL 150-400 Red Cell Distri Width %CV 16.6 % High 11.6-15.8 Mean Platelet Volume 11.1 fL High 6.6-10.6 Laboratory test finding 07/09/2014 [facility] Magnesium 1.4 mg/dL Low 1.7-2.3 [phone] Basic Metabolic Panel 07/09/2014 [facility] Glucose 114 mg/dL 76- 115 [phone] BUN 25 mg/dL High 5-23 Creatinine 0.9 mg/dL 0.5-1.4 Glom Filtration Rate, Estimate >60 mL/min >60 If >60 mL/min >60 64 BUN/Creat 27.7 ratio Sodium 146 mmol/L High 136-145 Potassium 3.1 mmol/L Low 3.5-5.1 Chloride 109 mmol/L High 98-107 Carbon Dioxide 31 mEq/L High 18-29 Anion Gap 9 mEq/L 8-16 Calcium 8.3 mg/dL Low 8.5-10.1 Laboratory test finding 07/09/2014 [facility] Potassium 3.6 mmol/L 3.5-5.8 [phone] Magnesium 1.8 mg/dL 1.7-2.3 Basic Metabolic Panel 07/09/2014 [facility] Glucose 135 mg/dL High 76-115 [phone] BUN 25 mg/dL High 5-23 Creatinine 1.2 mg/dL 0.5-1.4 Glom Filtration Rate, Estimate >60 mL/min >60 If >60 mL/min >60 65 BUN/Creat 20.8 ratio Sodium 141 mmol/L 136-145 Potassium 4.1 mmol/L 3.5-5.1 Chloride 104 mmol/L 98-107 Carbon Dioxide 33 mEq/L High 18-29 Anion Gap 8 mEq/L 8-16 Calcium 8.1 mg/dL Low 8.5-10.1 Differential-WBC Confirm 07/08/2014 [facility] Total Cells 100 # CELLS [phone] Counted Neutrophils% 83 % High 33-73 Lymph% 12 % Low 17-56 Monocyte% 4 % 0-10 Eosinophil% 1 % 0-5 Platelet Estimate NORMAL Polychromasia 0-1+ Hypochromia 0-1+ Poikilocytosis 0-1+ Anisocytosis 0-1+ CBC W/Automated Diff 07/08/2014 [facility] White Blood 7.4 K/uL 3.4-10.5 [phone] Count Red Blood Count 4.19 M/uL Low 4.20-5.80 Hemoglobin 13.2 gm/dL 12.8-17.0 Hematocrit 38.9 % 38.0-48.0 Mean Cell Volume 92.8 fl 80.0-96.0 Mean Corpuscular HGB 31.5 pg 27.0-33.0 Mean Corpuscular HGB Conc 33.9 g/dL 31.7-36.0 Platelet Count 288 K/uL 150-400 Red Cell Distri Width SD 55.3 fl High 36-51 Red Cell Distri Width %CV 16.6 % High 11.6-15.8 Mean Platelet Volume 10.5 fL 6.6-10.6 Neut# 6.01 K/uL 1.8-7.0 Lymph # 0.52 K/uL Low 1.2-4.0 Luna # 0.76 K/uL High 0.0-0.6 Eos # 0.10 K/uL 0.0-0.5 Baso # 0.03 K/uL Low 0.1-0.2 Laboratory test finding 07/08/2014 [facility] CK 49 U/L 26-190 [phone] Troponin-I < 0.02 ng/mL 0.00-0.50 66 Comprehensive Metabolic 07/08/2014 [facility] Glucose 147 mg/dL High 76-115 Panel [phone] BUN 26 mg/dL High 5-23 Creatinine 1.0 mg/dL 0.5-1.4 Glom Filtration Rate, Estimate >60 mL/min >60 If >60 mL/min >60 67 BUN/Creat 26.0 ratio Sodium 145 mmol/L 136-145 Potassium 3.6 mmol/L 3.5-5.1 Chloride 107 mmol/L 98-107 Carbon Dioxide 32 mEq/L High 18-29 Anion Gap 10 mEq/L 8-16 Calcium 8.4 mg/dL Low 8.5-10.1 Total Protein 5.7 g/dL Low 6.3-8.0 Albumin 3.0 g/dL Low 3.5-5.0 Globulin 2.7 g/dL 1.9-4.3 Alb/Glob 1.1 ratio Bilirubin,Total 0.5 mg/dL 0.2-1.2 Sgot/Ast 5 U/L Low 16-40 SGPT/Alt 13 U/L Low 30-65 Alkaline Phosphatase 79 U/L 50-136 LDL Cholesterol Profile 07/02/2014 [facility] Cholesterol 126 mg/dL 120-200 [phone] Triglycerides 88 mg/dL 16-231 HDL Cholesterol 48 mg/dL 29-83 LDL-Cholesterol 60 mg/dL Low 62-185 Laboratory test 07/02/2014 [facility] Thyroid Stim 29.70 High 0.49- 4.67 finding [phone] Hormone uIU/mL CBS W/Automated 07/02/2014 [facility] White Blood 7.1 K/uL 3.4- 10.5 Diff [phone] Count Red Blood Count 4.35 M/uL 4.20-5.80 Hemoglobin 13.3 gm/dL 12.8-17.0 Hematocrit 40.9 % 38.0-48.0 Mean Cell Volume 94.0 fl 80.0-96.0 Mean Corpuscular HGB 30.6 pg 27.0-33.0 Mean Corpuscular HGB Conc 32.5 g/dL 31.7-36.0 Platelet Count 348 K/uL 150-400 Red Cell Distri Width SD 57.2 fl High 36-51 Red Cell Distri Width %CV 16.9 % High 11.6-15.8 Mean Platelet Volume 10.7 fL High 6.6-10.6 Neut% 74.1 % High 33.0-73.0 Lymph % 12.0 % Low 17.0-56.0 Luna % 11.5 % High 0.0-10.0 Eo% 1.8 % 0.0-5.0 Bas% 0.6 % 0.1-1.0 Neut# 5.23 K/uL 1.8-7.0 Lymph # 0.85 K/uL Low 1.2-4.0 Luna # 0.81 K/uL High 0.0-0.6 Eos # 0.13 K/uL 0.0-0.5 Baso # 0.04 K/uL Low 0.1-0.2 Comprehensive Metabolic 07/02/2014 [facility] Glucose 127 mg/dL High 76-115 Panel [phone] BUN 27 mg/dL High 5-23 Creatinine 1.1 mg/dL 0.5-1.4 Glom Filtration Rate, Estimate >60 mL/min >60 If >60 mL/min >60 68 BUN/Creat 24.5 ratio Sodium 146 mmol/L High 136-145 Potassium 3.5 mmol/L 3.5-5.1 Chloride 110 mmol/L High 98-107 Carbon Dioxide 31 mEq/L High 18-29 Anion Gap 9 mEq/L 8-16 Calcium 8.6 mg/dL 8.5-10.1 Total Protein 5.9 g/dL Low 6.3-8.0 Albumin 3.1 g/dL Low 3.5-5.0 Globulin 2.8 g/dL 1.9-4.3 Alb/Glob 1.1 ratio Bilirubin,Total 0.4 mg/dL 0.2-1.2 Sgot/Ast 3 U/L Low 16-40 SGPT/Alt 13 U/L Low 30-65 Alkaline Phosphatase 69 U/L 50-136 1 N18.9,I10,E03.9,D41.4,(150.22) 2 > 100,000 CFU/mL 3 CULTURE TO FOLLOW 4 URINE, CLEAN CATCH 5 URINE, CLEAN CATCH 6 THERAPEUTIC INR RANGE: 2.0 - 3.0 DVT, Pulmonary embolus, prophylaxis against venous thrombosis or systemic embolization in high risk patients. 2.5 - 3.5 Mechanical heart valves 7 Reference Guidelines*: Desirable: ........... < 200 mg/dL Borderline High: ..... 200-239 mg/dL High: ................ >=240 mg/dL * The National Cholesterol Education Program (NCEP) 8 Reference Guidelines*: Normal: ............. < 150 mg/dL Borderline High: .... 150-199 mg/dL High: ............... 200-499 mg/dL Very High: .......... > 500 mg/dL * Source: National Cholesterol Education Program (NCEP) 9 Reference Guidelines*: Low HDL: ..... < 40 mg/dL Normal: ..... 40-60 mg/dL Desirable: ... > 60 mg/dL *The National Cholesterol Education Program(NCEP) 10 Reference Guidelines*: Optimal:........... <100 mg/dL Near Optimal....... 100-129 mg/dL Borderline High.... 130-159 mg/dL High............... 160-189 mg/dL Very High.......... >=190 mg/dL * Source: National Cholesterol Education Program (NCEP) 11 Elevated levels of HbA1c suggest the need for more aggressive treatment of glycemia. The [place] [employer] recommends that a primary goal of therapy should be a HbA1c of <7% and that physicians should re-evaluate the treatment regimen in patients with HbA1c values consistently >8%. 12 Note: Persistent reduction for 3 months or more in an eGFR <60 mL/min/1.73 m2 defines CKD. Patients with eGFR values >/=60 mL/min/1.73 m2 may also have CKD if evidence of persistent proteinuria is present. The original MDRD equation for estimated GFR is not valid for patients less than 18 years of age. Additional information may be found at www.[email or web address]. 13 N18.9 E03.9 14 Note: Persistent reduction for 3 months or more in an eGFR <60 mL/min/1.73 m2 defines CKD. Patients with eGFR values >/=60 mL/min/1.73 m2 may also have CKD if evidence of persistent proteinuria is present. The original MDRD equation for estimated GFR is not valid for patients less than 18 years of age. Additional information may be found at [email or web address]. 15 Values below the stated reference ranges of AST and ALT can be seen in normal populations. Clinical correlation is suggested. 16 N40.1 E03.9 N18.9 17 Adult male reference interval is based on a population of lean males up to 40 years old. 18 THIS ASSAY IS NOT INTENDED A CANCER SCREENING TEST The concentration of PSA in a given specimen, determined with assays from different manufacturers, can vary due to differences in assay methods and reagent specificity. Values obtained from different assay methods cannot be used interchangeably. Method: [employer] Chemiluminescent immunoassay. 19 Note: Persistent reduction for 3 months or more in an eGFR <60 mL/min/1.73 m2 defines CKD. Patients with eGFR values >/=60 mL/min/1.73 m2 may also have CKD if evidence of persistent proteinuria is present. The original MDRD equation for estimated GFR is not valid for patients less than 18 years of age. Additional information may be found at [email or web address]. 20 Values below the stated reference ranges of AST and ALT can be seen in normal populations. Clinical correlation is suggested. 21 E03.9 22 uIU/mL 23 QUERY: Reflex add FT3? N QUERY: Reflex add FT4? Y 24 Note: Persistent reduction for 3 months or more in an eGFR <60 mL/min/1.73 m2 defines CKD. Patients with eGFR values >/=60 mL/min/1.73 m2 may also have CKD if evidence of persistent proteinuria is present. The original MDRD equation for estimated GFR is not valid for patients less than 18 years of age. Additional information may be found at [email or web address]. 25 Reference Guidelines*: Desirable: ........... < 200 mg/dL Borderline High: ..... 200-239 mg/dL High: ................ >=240 mg/dL * The National Cholesterol Education Program (NCEP) 26 Reference Guidelines*: Normal: ............. < 150 mg/dL Borderline High: .... 150-199 mg/dL High: ............... 200-499 mg/dL Very High: .......... > 500 mg/dL * Source: National Cholesterol Education Program (NCEP) 27 Reference Guidelines*: Low HDL: ..... < 40 mg/dL Normal: ..... 40-60 mg/dL Desirable: ... > 60 mg/dL *The National Cholesterol Education Program(NCEP) 28 Reference Guidelines*: Optimal:........... <100 mg/dL Near Optimal....... 100-129 mg/dL Borderline High.... 130-159 mg/dL High............... 160-189 mg/dL Very High.......... >=190 mg/dL * Source: National Cholesterol Education Program (NCEP) 29 Note: Persistent reduction for 3 months or more in an eGFR <60 mL/min/1.73 m2 defines CKD. Patients with eGFR values >/=60 mL/min/1.73 m2 may also have CKD if evidence of persistent proteinuria is present. The original MDRD equation for estimated GFR is not valid for patients less than 18 years of age. Additional information may be found at [email or web address]. 30 Note: Persistent reduction for 3 months or more in an eGFR <60 mL/min/1.73 m2 defines CKD. Patients with eGFR values >/=60 mL/min/1.73 m2 may also have CKD if evidence of persistent proteinuria is present. The original MDRD equation for estimated GFR is not valid for patients less than 18 years of age. Additional information may be found at [email or web address]. 31 Note: Persistent reduction for 3 months or more in an eGFR <60 mL/min/1.73 m2 defines CKD. Patients with eGFR values >/=60 mL/min/1.73 m2 may also have CKD if evidence of persistent proteinuria is present. The original MDRD equation for estimated GFR is not valid for patients less than 18 years of age. Additional information may be found at [email or web address]. 32 Values below the stated reference ranges of AST and ALT can be seen in normal populations. Clinical correlation is suggested. 33 Note: Persistent reduction for 3 months or more in an eGFR <60 mL/min/1.73 m2 defines CKD. Patients with eGFR values >/=60 mL/min/1.73 m2 may also have CKD if evidence of persistent proteinuria is present. The original MDRD equation for estimated GFR is not valid for patients less than 18 years of age. Additional information may be found at [email or web address]. 34 Values below the stated reference ranges of AST and ALT can be seen in normal populations. Clinical correlation is suggested. 35 0.0 - 0.045 ng/mL: Normal 0.046 - 0.5 ng/mL: Suggestive 0.6 - 1.5 ng/mL: Consistent 36 NO GROWTH: FINAL REPORT 37 NO GROWTH: FINAL REPORT 38 NO GROWTH: FINAL REPORT 39 NO GROWTH: FINAL REPORT 40 No Legionella species isolated. Performed at: RN - [facility] [address] [id number] [employer]: Kristal Mario MD, Phone: [phone] 41 GRAM STAIN ! >25 WBC/LPF ! <10 SQUAMOUS EPITHELIAL CELLS/LPF ! MANY GRAM NEGATIVE COCCOBACILLI ! FEW GRAM POSITIVE COCCI ! FEW GRAM POS [facility] [employer] 42 Organism 1 ! HAEMOPHILUS INFLUENZAE BETA LACTAMASE (CEFINASE) ! POSITIVE Quantity ! MANY RECOMMENDED THERAPY: ! BETA LACTAMASE NEGATIVE: PENICILLIN OR AMPICILLIN ! BETA LACTAMASE POS: AMPICILLIN/SULBACTAM OR ! CEPHALOSPORIN. Organism 2 ! RESPIRATORY CHRISTIAN Quantity ! MANY 43 Note: Persistent reduction for 3 months or more in an eGFR <60 mL/min/1.73 m2 defines CKD. Patients with eGFR values >/=60 mL/min/1.73 m2 may also have CKD if evidence of persistent proteinuria is present. The original MDRD equation for estimated GFR is not valid for patients less than 18 years of age. Additional information may be found at [email or web address]. 44 QUERY: Reflex add FT3? Y QUERY: Reflex add FT4? Y 45 Vitamin D deficiency has been defined by the [place] [employer] and an Endocrine Society practice guideline as a level of serum 25-OH vitamin D less than 20 ng/mL (1,2). The Endocrine Society went on to further define vitamin D insufficiency as a level between 21 and 29 ng/mL (2). 1. IOM ([place] [employer]). 2010. Dietary reference intakes for calcium and D. [place]: The National Academies Press. 2. Naseem MF, Jossue NC, Jonatan CHOU, et al. Evaluation, treatment, and prevention of vitamin D deficiency: an Endocrine Society clinical practice guideline. JCEM. 2010; 96(7):1911-30. Performed at: RN - [facility] [address] [id number] Glass Mold Repairer: Kristal Mario MD, Phone: [phone] 46 Note: Persistent reduction for 3 months or more in an eGFR <60 mL/min/1.73 m2 defines CKD. Patients with eGFR values >/=60 mL/min/1.73 m2 may also have CKD if evidence of persistent proteinuria is present. The original MDRD equation for estimated GFR is not valid for patients less than 18 years of age. Additional information may be found at [email or web address]. 47 Note: Persistent reduction for 3 months or more in an eGFR <60 mL/min/1.73 m2 defines CKD. Patients with eGFR values >/=60 mL/min/1.73 m2 may also have CKD if evidence of persistent proteinuria is present. The original MDRD equation for estimated GFR is not valid for patients less than 18 years of age. Additional information may be found at [email or web address]. 48 Note: Persistent reduction for 3 months or more in an eGFR <60 mL/min/1.73 m2 defines CKD. Patients with eGFR values >/=60 mL/min/1.73 m2 may also have CKD if evidence of persistent proteinuria is present. The original MDRD equation for estimated GFR is not valid for patients less than 18 years of age. Additional information may be found at [email or web address]. 49 Note: Persistent reduction for 3 months or more in an eGFR <60 mL/min/1.73 m2 defines CKD. Patients with eGFR values >/=60 mL/min/1.73 m2 may also have CKD if evidence of persistent proteinuria is present. The original MDRD equation for estimated GFR is not valid for patients less than 18 years of age. Additional information may be found at [email or web address]. 50 0.0 - 0.045 ng/mL: Normal 0.046 - 0.5 ng/mL: Suggestive 0.6 - 1.5 ng/mL: Consistent 51 Note: Persistent reduction for 3 months or more in an eGFR <60 mL/min/1.73 m2 defines CKD. Patients with eGFR values >/=60 mL/min/1.73 m2 may also have CKD if evidence of persistent proteinuria is present. The original MDRD equation for estimated GFR is not valid for patients less than 18 years of age. Additional information may be found at [email or web address]. 52 0.0 - 0.045 ng/mL: Normal 0.046 - 0.5 ng/mL: Suggestive 0.6 - 1.5 ng/mL: Consistent 53 Note: Persistent reduction for 3 months or more in an eGFR <60 mL/min/1.73 m2 defines CKD. Patients with eGFR values >/=60 mL/min/1.73 m2 may also have CKD if evidence of persistent proteinuria is present. The original MDRD equation for estimated GFR is not valid for patients less than 18 years of age. Additional information may be found at [email or web address]. 54 0.0 - 0.045 ng/mL: Normal 0.046 - 0.5 ng/mL: Suggestive 0.6 - 1.5 ng/mL: Consistent 55 QUERY: Reflex add FT3? Y QUERY: Reflex add FT4? Y 56 Note: Persistent reduction for 3 months or more in an eGFR <60 mL/min/1.73 m2 defines CKD. Patients with eGFR values >/=60 mL/min/1.73 m2 may also have CKD if evidence of persistent proteinuria is present. The original MDRD equation for estimated GFR is not valid for patients less than 18 years of age. Additional information may be found at [email or web address]. 57 Note: Persistent reduction for 3 months or more in an eGFR <60 mL/min/1.73 m2 defines CKD. Patients with eGFR values >/=60 mL/min/1.73 m2 may also have CKD if evidence of persistent proteinuria is present. The original MDRD equation for estimated GFR is not valid for patients less than 18 years of age. Additional information may be found at [email or web address]. 58 Note: Persistent reduction for 3 months or more in an eGFR <60 mL/min/1.73 m2 defines CKD. Patients with eGFR values >/=60 mL/min/1.73 m2 may also have CKD if evidence of persistent proteinuria is present. The original MDRD equation for estimated GFR is not valid for patients less than 18 years of age. Additional information may be found at [email or web address]. 59 07/14/14 [facility] Deleted by [facility] 60 Note: Persistent reduction for 3 months or more in an eGFR <60 mL/min/1.73 m2 defines CKD. Patients with eGFR values >/=60 mL/min/1.73 m2 may also have CKD if evidence of persistent proteinuria is present. The original MDRD equation for estimated GFR is not valid for patients less than 18 years of age. Additional information may be found at [email or web address]. 61 Increased levels of BNP may also be seen in the following conditions: AMI (first 2-5 days) Hypertension with LVH Acute Dyspnea Pulmonary Embolism Obstructive Pulmonary Disease Hyperthyroidism Liver Cirrhosis with Ascites Renal Failure (acute or chronic) 62 Note: Persistent reduction for 3 months or more in an eGFR <60 mL/min/1.73 m2 defines CKD. Patients with eGFR values >/=60 mL/min/1.73 m2 may also have CKD if evidence of persistent proteinuria is present. The original MDRD equation for estimated GFR is not valid for patients less than 18 years of age. Additional information may be found at [email or web address]. 63 Note: Persistent reduction for 3 months or more in an eGFR <60 mL/min/1.73 m2 defines CKD. Patients with eGFR values >/=60 mL/min/1.73 m2 may also have CKD if evidence of persistent proteinuria is present. The original MDRD equation for estimated GFR is not valid for patients less than 18 years of age. Additional information may be found at [email or web address]. 64 Note: Persistent reduction for 3 months or more in an eGFR <60 mL/min/1.73 m2 defines CKD. Patients with eGFR values >/=60 mL/min/1.73 m2 may also have CKD if evidence of persistent proteinuria is present. The original MDRD equation for estimated GFR is not valid for patients less than 18 years of age. Additional information may be found at [email or web address]. 65 Note: Persistent reduction for 3 months or more in an eGFR <60 mL/min/1.73 m2 defines CKD. Patients with eGFR values >/=60 mL/min/1.73 m2 may also have CKD if evidence of persistent proteinuria is present. The original MDRD equation for estimated GFR is not valid for patients less than 18 years of age. Additional information may be found at [email or web address]. 66 0.0 - 0.045 ng/mL: Normal 0.046 - 0.5 ng/mL: Suggestive 0.6 - 1.5 ng/mL: Consistent 67 Note: Persistent reduction for 3 months or more in an eGFR <60 mL/min/1.73 m2 defines CKD. Patients with eGFR values >/=60 mL/min/1.73 m2 may also have CKD if evidence of persistent proteinuria is present. The original MDRD equation for estimated GFR is not valid for patients less than 18 years of age. Additional information may be found at [email or web address]. 68 Note: Persistent reduction for 3 months or more in an eGFR <60 mL/min/1.73 m2 defines CKD. Patients with eGFR values >/=60 mL/min/1.73 m2 may also have CKD if evidence of persistent proteinuria is present. The original MDRD equation for estimated GFR is not valid for patients less than 18 years of age. Additional information may be found at [email or web address]. Procedures Date Code Description Status 01/01/2018 09495 EKG Completed 11/04/2015 61085 Oximetry For Oxygen,Single Determ Completed Encounters Type Date Location Provider Dx Diagnosis Office Visit 09/09/2018 Main Office Vick I48.2 Chronic atrial 9:30a Tutu Dailey fibrillation R60.0 Localized edema N18.9 Chronic kidney disease, unspecified E03.9 Hypothyroidism, unspecified I10 Essential (primary) hypertension J44.9 Chronic obstructive pulmonary disease, unspecified Office Visit 03/10/2018 10:00a Main Office Vick Dailey Z00.00 Encntr carrol Cam general adult medical exam w/o abnormal findings N18.9 Chronic kidney disease, unspecified I48.2 Chronic atrial fibrillation I50.22 Chronic systolic (congestive) heart failure E03.9 Hypothyroidism, unspecified I10 Essential (primary) hypertension H91.93 Unspecified hearing loss, bilateral Office Visit 01/01/2018 11:00a Main Office Vick Dailey, 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 disease, unspecified I48.2 Chronic atrial fibrillation I50.22 Chronic systolic (congestive) heart failure E03.9 Hypothyroidism, unspecified I10 Essential (primary) hypertension R60.0 Localized edema Office Visit 03/07/2017 10:00a Main Office Kel Greenberg00.01 Encounter for M.DClint general adult medical exam w abnormal findings N18.9 Chronic kidney disease, unspecified I48.2 Chronic atrial fibrillation I50.22 Chronic systolic (congestive) heart failure E03.9 Hypothyroidism, unspecified H91.93 Unspecified hearing loss, bilateral Office Visit 12/12/2016 8:45a Main Office Vick Dailey N18.9 Chronic kidney M.D. disease, unspecified I48.2 Chronic atrial fibrillation I50.22 Chronic systolic (congestive) heart failure E03.9 Hypothyroidism, unspecified Office Visit 09/11/2016 9:45a Main Office Vick Dailey N18.9 Chronic kidney M.D. disease, unspecified E03.9 Hypothyroidism, unspecified I48.2 Chronic atrial fibrillation I50.22 Chronic systolic (congestive) heart failure Z23 Encounter for immunization Office Visit 06/18/2016 Main Office Vick E03.9 Hypothyroidism, 10:30a Tutu Dailey unspecified Office Visit 03/06/2016 Main Office Vick Z00.01 Encounter for 10:00a Tutu Dailey general adult medical exam w abnormal findings I48.2 Chronic atrial fibrillation E03.9 Hypothyroidism, unspecified N19 Unspecified kidney failure I50.20 Unspecified systolic (congestive) heart failure I67.89 Other cerebrovascular disease H91.93 Unspecified hearing loss, bilateral Z23 Encounter for immunization Office Visit 12/05/2015 11:15a Main Office Vick Dailey J15.9 Unspecified M.D. bacterial pneumonia R06.02 Shortness of breath Office Visit 11/04/2015 10:30a Main Office Vick Dailey, J15.9 Unspecified M.D. bacterial pneumonia Office Visit 07/26/2015 9:30a Main Office Vick Dailey, 719.48 Pain Joint Other M.D. Spec Sites 530.81 Esophageal Reflux 427.31 Atrial Fibrillation 244.9 Hypothyroidism Other Unspec v04.81 Need For Prophylactic Vaccination & Inoculation/Influenza Office Visit 04/25/2015 8:45a Main Office Vick Dailey, 586 Renal Failure M.D. Unspec 428.0 Congestive Heart Failure Unspecified 427.31 Atrial Fibrillation Office Visit 02/21/2015 8:45a Main Office Vick Dailey, 428.0 Congestive Heart M.D. Failure Unspecified 586 Renal Failure Unspec 427.31 Atrial Fibrillation 244.9 Hypothyroidism Other Unspec Office Visit 01/21/2015 8:45a Main Office Vick 427.31 Atrial Luly Dailey.DClint Fibrillation 586 Renal Failure Unspec Office Visit 01/06/2015 9:30a Main Office Vick Dailey, 586 Renal Failure M.D. Unspec 244.9 Hypothyroidism Other Unspec 428.0 Congestive Heart Failure Unspecified 427.31 Atrial Fibrillation Office Visit 2014 10:30a Main Office Vick Dailey, 586 Renal Failure M.D. Unspec 428.0 Congestive Heart Failure Unspecified 244.9 Hypothyroidism Other Unspec Office Visit 09/22/2014 8:45a Main Office Vick Dailey, 428.0 Congestive Heart M.D. Failure Unspecified 788.20 Retention Urine Unspec 427.31 Atrial Fibrillation 787.91 Diarrhea 244.9 Hypothyroidism Other Unspec 787.20 Dysphagia, Unspecified Office Visit 08/24/2014 9:15a Main Office Vick Dailey, 486 Pneumonia M.D. Organism Unspec 436 Cerebrovascular Disease Acute Ill-Defined 427.31 Atrial Fibrillation 530.81 Esophageal Reflux 586 Renal Failure Unspec 389.9 Hearing Loss Unspec 244.9 Hypothyroidism Other Unspec Office Visit 06/29/2014 9:15a Main Office Vick Dailey, 008.45 Clostridium M.D. Difficile 009.1 Colitis Enteritis & Gastroenteritis Presumed Infectious Orig 584.9 Renal Failure Acute Unspec 788.20 Retention Urine Unspec 427.31 Atrial Fibrillation 244.9 Hypothyroidism Other Unspec Plan of Treatment Future Appointment(s):03/11/2019 10:00 am - Vick Dailey M.D. at Main [id number]/09/2018 - Vick Dailey M.D.I48.2 Chronic atrial jorxsnfkeekdT57.0 Localized edemaNew Labs:Comprehensive Metabolic Panel, Ordered : 09/09/18ollow up:3 [id number] Chronic kidney disease, unspecifiedNew Labs: Microalbumin,Random Urine, Ordered: 09/09/18CBC, Ordered: 09/09/18E03.9 Hypothyroidism, unspecifiedNew Labs:TSH Reflex FT4 And/Or FT3, Ordered: I10 Essential (primary) hypertensionNew Labs:LDL Cholesterol Profile, Ordered : 09/09/18J44.9 Chronic obstructive pulmonary disease, unspecified
[2018-09-22 20:19] VITALS: BP 110/57
--- NOTE | 2018-09-22 21:26 | UC ---
Complaint Male HPI - HPI Summary HPI Summary: The patient is a 87-year-old male who has had a suprapubic bladder catheter for approximately 9 months. He states that for the past 2 days he has had no urine output into his bag. He has had some suprapubic pain. He states that the urine has been leaking out around his catheter. The urine has been dark in color and is foul smelling. Family states they had to put a call into his urologist however the phone call was not answered. There's been no fever. - History of Current Complaint Chief Complaint: UCGeneralIllness Stated Complaint: PERSONAL Time Seen by Provider: 09/22/18 21:07 Onset/Duration: Gradual Onset, Lasting Days Timing: Constant Severity Initially: Moderate Pain Intensity: 5 Pain Scale Used: 0-10 Numeric Location: Suprapubic Character: Colicy Aggravating Factor(s): Nothing Alleviating Factor(s): Nothing - Allergies/Home Medications Allergies/Adverse Reactions: Allergies Allergy/AdvReac Type Severity Reaction Status Date / Time No Known Allergies Allergy Verified 09/22/18 20:03 Home Medications: Home Medications Albuterol HFA INHALER* [Ventolin HFA Inhaler*] 1 puff Q6HR PRN 09/22/18 [ History Confirmed 09/22/18] Cholecalciferol TAB* [Vitamin D TAB*] 5,000 units DAILY 09/22/18 [History Confirmed 09/22/18] Digoxin TAB* [Lanoxin TAB*] 1 tab EVERY OTHER DAY 09/22/18 [History Confirmed ] Diltiazem CD CAP* [Cardizem CD CAP*] 1 tab DAILY 09/22/18 [History Confirmed 04/04] Levothyroxine TAB* [Synthroid 75 MCG TAB*] 1 tab DAILY 09/22/18 [History Confirmed 09/22/18] Lisinopril TAB* [Prinivil TAB 5 MG*] 2.5 mg DAILY 09/22/18 [History Confirmed ] Magnesium Oxide TAB* [MagOx 400 TAB*] 1 tab DAILY 09/22/18 [History Confirmed ] Metoprolol Succinate XL TAB* [Toprol XL TAB*] 1 tab DAILY 09/22/18 [History Confirmed 09/22/18] Oxygen 2 - 3 SEE INSTRUCTIONS 09/22/18 [History] Potassium Chlor TAB* [Potassium Chlor TAB 20 MEQ*] 1 tab DAILY 09/22/18 [ History Confirmed 09/22/18] Rivaroxaban TAB(*) [Xarelto 15 mg(*)] 1 tab DAILY 09/22/18 [History Confirmed ] PMH/Surg Hx/FS Hx/Imm Hx Previously Healthy: Yes Cardiovascular History: Hypertension Neurological History: CVA - Surgical History Surgical History: Yes Surgery Procedure, Year, and Place: NASAL SURGERY. T&A. 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 - Social History Alcohol Use: None Substance Use Type: None Smoking Status (MU): Former Smoker Type: Cigarettes When Did the Patient Quit Smoking/Using Tobacco: 20 YRS AGO Review of Systems Constitutional: Negative Skin: Negative Eyes: Negative ENT: Negative Respiratory: Negative Cardiovascular: Negative Gastrointestinal: Negative Genitourinary: Negative Motor: Negative Neurovascular: Negative Musculoskeletal: Negative Neurological: Negative Psychological: Negative All Other Systems Reviewed And Are Negative: Yes Physical Exam Triage Information Reviewed: Yes Appearance: Well-Appearing, No Pain Distress, Well-Nourished, Thin Vital Signs: Initial Vital Signs Temp 97.6 F 09/22/18 20:03 Pulse 97 09/22/18 20:03 Resp 24 09/22/18 20:03 BP 110/57 09/22/18 20:03 Pulse Ox 96 09/22/18 20:03 Vital Signs Reviewed: Yes Eyes: Positive: Conjunctiva Clear ENT: Positive: Hearing grossly normal. Negative: Nasal congestion, Nasal drainage, Trismus, Muffled voice, Hoarse voice Neck: Positive: Supple, Nontender Respiratory: Positive: Lungs clear, Normal breath sounds, No respiratory distress, No accessory muscle use Cardiovascular: Negative: Tachycardia, Bradycardia Abdomen Description: Positive: Soft. Negative: Nontender - suprapubic catheter with leakage around tube urine brown Bowel Sounds: Positive: Present Musculoskeletal: Positive: ROM Intact, No Edema Neurological: Positive: Alert Psychological Exam: Normal Complaint Male Course/Dx - Course Course Of Treatment: discussed with Dr. Trinh. To [facility] ER - Differential Dx/Diagnosis Provider Diagnoses: malfunctioning suprapubic bladder catheter. Probable UTI Discharge - Sign-Out/Discharge Documenting (check all that apply): Patient Departure All imaging exams completed and their final reports reviewed: No Studies - Discharge Plan Condition: Stable Disposition: TRANS [facility] CARE FAC Referrals: Vick Dailey MD [Primary Care Provider] - Additional Instructions: To ER now I spoke to Dr. Trinh and they are expecting you - Billing Disposition and Condition Condition: STABLE Disposition: Trans Higher Lvl of Care Fac
== END 2018-09-22 21:28 | disposition short-term general hospital (02) ==
LOC: UCCORT 19:33
DX: N99.512 Cystostomy malfunction (principal); I10 Essential (primary) hypertension; Z79.899 Other long term (current) drug therapy; Z86.73 Personal history of transient ischemic attack (TIA), and cerebral infarction without residual deficits; Z87.891 Personal history of nicotine dependence
CPT/HCPCS: 99202; G0463